=== PATIENT | female | born 1990 | race Caucasian/White ===

== ENCOUNTER 2022-02-14 09:04 | Emergency (ER) | payer MEDICAID, SELFPAY ==
[2022-02-14 09:06] VITALS: BP 124/77; PULSE 99; RESP 22; TEMP 36.6; O2SAT 97; BMI 42.8
--- NOTE | 2022-02-14 09:14 | EKG12_ITS ---
Test Reason : CP Blood Pressure : / mmHG Vent. Rate : 084 BPM Atrial Rate : 084 BPM P-R Int : 158 ms QRS Dur : 078 ms QT Int : 382 ms P-R-T Axes : 065 081 063 degrees QTc Int : 451 ms Normal sinus rhythm Normal ECG Confirmed by VAZQUEZ ZEE, ANA LUISA ([id number]), editorial clerk ARY RAO ([id number]) on 02/16/2022 12:41:03 PM Referred By: ISRAEL Confirmed By:ANA LUISA SHUKLA MD
--- NOTE | 2022-02-14 09:14 | RAD_ITS ---
HISTORY: chest pain. TECHNIQUE: XR Chest 1 View. COMPARISON: None. FINDINGS: CARDIOMEDIASTINAL BORDERS: Cardiac silhouette within normal limits in size. Mediastinal contour unremarkable. LUNGS: Radiographically clear. PLEURA: No pleural effusion or pneumothorax seen. OSSEOUS STRUCTURES: Unremarkable. RAD/Chest 1 View (Portable) IMPRESSION: No acute cardiopulmonary process identified. Electronically Signed: Liz Conner MD at 9:35 EDT ,
[2022-02-14 09:25] LABS: Absolute Lymphocyte Count 2.58 X10^3/uL (0.83-4.51); Absolute Neutrophil Count 4.8 X10^3/uL (2.0-7.7); Basophil# 0.05 X10^3/uL; Basophil% 0.6 % (0-1); Eosinophil# 0.27 X10^3/uL; Eosinophils% 3.2 % (0-5); Hematocrit 40.6 % (37-47); Hemoglobin 13.5 g/dL (12.0-15.0); Lymphocyte # 2.58 X10^3/ul (0.83-4.51); Lymphocyte % 30.6 % (19-41); Mean Corp Hgb Conc 33.3 g/dL (32-36); Mean Corpuscular Hgb 29.5 pg (27.0-32.0); Mean Corpuscular Volume 88.8 fL (81-99); Mean Platelet Vol. 10.4 fl (6.2-12.0); Monocyte# 0.69 X10^3/uL; Monocyte% 8.2 % (0-10); NRBC Flagged by Analyzer 0 % (0-5); Neutrophil # 4.82 X10^3/uL (2.7-7.7); Platelet Count 275 K/mm3 (150-450); RBC Distribution Width CV 14.4 % (11.6-14.6); RBC Distribution Width SD 46.3 fl (35.1-43.9); Red Blood Count 4.57 M/mm3 (4.2-5.4); White Blood Count 8.4 K/mm3 (4.4-11.0)
--- NOTE | 2022-02-14 09:30 | EDS_ITS ---
HPI History of Present Illness Chief Complaint: Chest Pain Narrative Narrative: 31-year-old female presenting with chest pain which she states is epigastric and retrosternal radiating to the right arm. She reports that she had Tineo's prior to this. She states she only ate 2 hashbrowns and had a Frappuccino. Patient denies any cardiac history. She is a previous smoker but does not smoke currently. No history of early heart disease in her family. No history of DVT/PE. PE Risk Factors: Negative for Recent Travel/Surgery, Recent Immobilization, Prior DVT or PE, Cancer and OCP + Smoking + >/=35 PFSH PFSH Medical History (Updated 02/14/22 @ 09:12 by Anita Sage) Hypothyroid Seizures Home Medications famotidine [Pepcid] 20 mg PO BID #14 tab 02/14/22 [Rx Last Taken Unknown] levothyroxine 88 mcg PO DAILY 02/14/22 [History Last Taken Unknown] ondansetron 4 mg PO Q8H PRN #10 tab 02/14/22 [Rx Last Taken Unknown] topiramate [Topamax] 100 mg PO BID 02/14/22 [History Last Taken Unknown] Allergy/AdvReac Type Severity Reaction Status Date / Time No Known Allergies Allergy Verified 02/14/22 09:05 Surgical History (Updated 02/14/22 @ 09:12 by Anita Sage) Hx of section Hx of umbilical hernia repair Social History Smoking Status: Former smoker [facility] ED Constitutional Constitutional ED: Denies chills, fever(s) or sweats Eyes Eyes: Denies blurry vision or change in vision ENT ENT ED: Denies ear pain or sore throat Cardiovascular Cardiovascular: Reports chest pain; Denies palpitations or racing heartbeat Respiratory/Chest Respiratory/Chest: Denies cough, dyspnea or sputum Gastrointestinal Gastrointestinal: Reports abdominal pain and nausea; Denies constipation, diarrhea or vomiting Genitourinary Genitourinary ED: Denies dysuria, hematuria or urinary frequency Musculoskeletal Musculoskeletal: Denies arthralgias, myalgias or neck pain Integumentary Denies abscess, Abrasions or rash Neurologic Neurologic: Denies headache(s), paresthesias or weakness Psychiatric Psychiatric: Denies anxiety, depression, suicidal ideation or suicidal thoughts Endocrine Endocrinology: Denies polydipsia or polyuria EXAM Physical Exam Const Vital Signs: 02/14/22 09:06 02/14/22 09:13 02/14/22 09:14 Temperature 97.9 F Temperature Source Oral Pulse Rate 99 Respiratory Rate 22 H Respiratory Effort Normal Non-Labored Respiratory Pattern Normal Blood Pressure 124/77 H Blood Pressure Mean 92 Pulse Ox 97 Oxygen Delivery Method Room Air Room Air 02/14/22 09:17 02/14/22 09:43 02/14/22 10:15 Temperature Temperature Source Pulse Rate 89 81 Respiratory Rate 16 16 Respiratory Effort Normal Respiratory Pattern Blood Pressure 125/74 H 112/82 H Blood Pressure Mean 91 92 Pulse Ox 98 99 Oxygen Delivery Method Room Air Room Air Positive well developed General Appearance ED: well developed and NAD HEENT normocephalic and atraumatic Eyes PERRL and EOMs intact bilaterally Resp normal respiratory effort Effort and Inspection: respiratory distress Cardio regular rate and regular rhythm GI normal to inspection, nondistended, normoactive bowel sounds Neuro oriented x3 and CN's II-XII intact bilaterally Sensorium / Orientation: awake and alert Motor Exam: strength 5/5 throughout Psych mental status grossly normal Skin no rashes or lesions noted and No no wounds General Skin Exam: Negative for jaundice Heart Score History: Slightly/Non-Suspicious ECG: Normal Age: </= 45 years Risk Factors: No Risk Factors Troponin: </= Normal Limit Score: 0 MDM MDM MDM Narrative Medical decision making narrative: Patient presenting with chest pain was started after a Tineo's. I obtained an EKG on arrival and on my interpretation this is a normal sinus rhythm with a ventricular rate of 84 bpm without sign of ischemic change or dysrhythmia. Patient with no DVT/PE risk factors and she is PERC negative. CBC and CMP are unremarkable. Lipase is normal. High-sensitivity troponin is less than 3. Chest x-ray my interpretation shows no acute cardiopulmonary process and radiologist agree serum hCG negative. Patient will be given GI cocktail to see if this helps with her symptoms. On reevaluation she is feeling improved. I will discharge her home with Pepcid and Zofran. She is counseled on foods to avoid. I do not believe she needs repeat lab work or further imaging. Impression: 1. Chest pain 2. Epigastric pain 3. Nausea Lab Data Attestation: I reviewed the patient's lab results. Labs: Laboratory Results - last 24 hr 0602/14/22 02/14/22 09:10 09:10 09:10 WBC 8.4 RBC 4.57 Hgb 13.5 Hct 40.6 MCV 88.8 MCH 29.5 MCHC 33.3 RDW Std Deviation 46.3 H RDW Coeff of Rosa 14.4 Plt Count 275 MPV 10.4 Immature Gran % (Auto) 0.400 Neut % (Auto) 57.0 Lymph % (Auto) 30.6 Hernando % (Auto) 8.2 Eos % (Auto) 3.2 Baso % (Auto) 0.6 Absolute Neuts (auto) 4.8 Absolute Lymphs (auto) 2.58 Nucleated RBC % 0 Sodium 137 Potassium 4.1 Chloride 109 H Carbon Dioxide 23.0 Anion Gap 5 BUN 13 Creatinine 0.80 Estim Creat Clear Calc 154.90 Est GFR (MDRD) Af Amer 108 Est GFR (MDRD) Non-Af 89 BUN/Creatinine Ratio 16.3 Glucose 117 H Calcium 9.1 Total Bilirubin 0.20 Direct Bilirubin 0.05 AST 25 ALT 29 Alkaline Phosphatase 79 Troponin I High Sens < 3 L Total Protein 6.9 Albumin 3.4 Globulin 3.5 Lipase Serum , Qual 02/14/22 02/14/22 09:10 09:35 WBC RBC Hgb Hct MCV MCH MCHC RDW Std Deviation RDW Coeff of Rosa Plt Count MPV Immature Gran % (Auto) Neut % (Auto) Lymph % (Auto) Hernando % (Auto) Eos % (Auto) Baso % (Auto) Absolute Neuts (auto) Absolute Lymphs (auto) Nucleated RBC % Sodium Potassium Chloride Carbon Dioxide Anion Gap BUN Creatinine Estim Creat Clear Calc Est GFR (MDRD) Af Amer Est GFR (MDRD) Non-Af BUN/Creatinine Ratio Glucose Calcium Total Bilirubin Direct Bilirubin AST ALT Alkaline Phosphatase Troponin I High Sens Total Protein Albumin Globulin Lipase 136 Serum , Qual NEGATIVE Radiography Diagnostic Testing: Clinical Impression(s) from Imaging Studies Chest X-Ray 02/14/22 09:14 IMPRESSION: No acute cardiopulmonary process identified. Electronically Signed: Liz Conner MD at 9:35 EDT Reading Location ID and State: [facility] / [place] Tel , Service support , Discharge Plan Triage Chief Complaint: Chest Pain ED Provider: Yasmany Bean Dx/Rx/DC Orders Instructions: ED Chest Pain, Noncardiac, ED Epigastric Pain Uncertain Cause Prescriptions: New ondansetron 4 mg tablet,disintegrating 4 mg PO Q8H PRN (Reason: nausea and vomiting) Qty: 10 RF: 0 famotidine [Pepcid] 20 mg tablet 20 mg PO BID Qty: 14 RF: 0 No Action levothyroxine 88 mcg Tablet 88 mcg PO DAILY RF: 0 topiramate [Topamax] 100 mg Tablet 100 mg PO BID RF: 0 Primary Care Provider: Maykel Garay,Out of Referrals: [facility] Doctor,Out of [Primary Care Provider] - Disposition Disposition: Home, Self Care
[2022-02-14] MEDS: Morphine 4 MG/ML Syringe IV (09:40)
[2022-02-14] MEDS: Ondansetron 4 MG/2 ML Vial IV (09:40)
[2022-02-14 09:43] VITALS: BP 125/74; PULSE 89; RESP 16; O2SAT 98
[2022-02-14 09:53] LABS: Anion Gap 5 (5-15); BUN 13 mg/dL (7-18); BUN/Creat Ratio 16.3 RATIO (10-20); Calcium,Total 9.1 mg/dL (8.5-10.1); Chloride 109 mmol/L (98-107); EST Glomerular Filtration Rate 89 mL/min (>60); Est Glom Filt Rate - Afr Amer 108 mL/min (>60); Glucose 117 mg/dL (74-106); Potassium 4.1 mmol/L (3.5-5.1); Sodium Level 137 mmol/L (136-145); Troponin-I HS < 3 pg/mL (3.0-54.0)
[2022-02-14 10:02] LABS: Internal QC Validated? YES +Cl - CLEAR BKGD; Pregnancy, Serum, hCG Quali. NEGATIVE Negative
[2022-02-14 10:15] VITALS: BP 112/82; PULSE 81; RESP 16; O2SAT 99
[2022-02-14 10:32] LABS: AST(SGOT) 25 U/L (15-37); Alanine Aminotransfer ALT/SGPT 29 U/L (13-56); Albumin, Serum 3.4 g/dL (3.2-5.0); Alkaline Phosphatase 79 U/L (45-117); Bilirubin, Direct 0.05 mg/dL (0.00-0.30); Globulin 3.5 g/dL (2.2-4.2); Lipase 136 U/L (73-393); Protein, Total 6.9 g/dL (6.4-8.2)
[2022-02-14] MEDS: Mag Hydrox/Al Hydrox/Simeth 30 ML UDC PO (10:46)
[2022-02-14 10:59] VITALS: BP 132/75; PULSE 68; RESP 15; O2SAT 98
== END 2022-02-14 10:59 | disposition home or self-care (01) ==
PROVIDERS: Emergency Provider Student in an Organized Health Care Education/Training Program; Visit Provider Student in an Organized Health Care Education/Training Program
DX: R07.9 Chest pain, unspecified (principal); R10.13 Epigastric pain; R11.0 Nausea; E03.9 Hypothyroidism, unspecified; Z79.899 Other long term (current) drug therapy; Z87.891 Personal history of nicotine dependence
CPT/HCPCS: 71045; 80048; 80076; 83690; 84484; 84703; 85025; 93005; 96374; 96375; 99285; A4216; J2405